=== PATIENT | female | born 1955 | race American Indian/Alaskan Native ===

== ENCOUNTER 2016-08-23 13:42 | Outpatient (CLI) | payer BC ==
--- NOTE | 2016-08-23 15:30 | Mammography Report ---
BILATERAL MAMMOGRAM: FINDINGS: The breasts are almost entirely fat (<25% glandular). No mass, distortion, suspicious calcification, or skin change is seen. There is no significant change compared to her prior exam in October 2014. CAD was utilized. IMPRESSION: Negative mammogram. There is no mammographic evidence of malignancy. RECOMMENDATION: Follow-up per ACS guidelines. BI-RADS CATEGORY: 1 = Negative ACR BI-RADS MAMMOGRAPHIC CODES: 0 = Needs additional imaging evaluation; 1 = Negative; 2 = Benign; 3 = Probably benign; 4 = Suspicious; 5 = Malignant; 6 = Known biopsy-proven malignancy COMMENT: 1. Dense breast tissue, i.e., adenosis, fibrocystic changes, etc., may obscure an underlying neoplasm. 2. Approximately 10% of cancers are not detected with mammography. 3. A negative mammography report should not delay biopsy if a clinically suspicious mass is present. COMMENT: Patient follow-up letters are generated in [employer].
== END 2016-08-23 13:43 | disposition home or self-care (01) ==
LOC: MAMMO 13:42
PROVIDERS: ATTEND Obstetrics & Gynecology
DX: Z12.31 Encounter for screening mammogram for malignant neoplasm of breast (principal)
CPT/HCPCS: 77067; G0202

== ENCOUNTER 2018-01-03 10:00 | Outpatient (CLI) | payer BC ==
--- NOTE | 2018-01-03 13:42 | Mammography Report ---
BILATERAL DIGITAL SCREENING MAMMOGRAM with CAD: 01/03/18 10:00:00 CLINICAL: Routine screening. COMPARISON:08/23/16 FINDINGS: The breasts are almost entirely fatty.A few stable right inner benign calcifications. No mass, architectural distortion or suspicious calcifications. IMPRESSION: No mammographic evidence of malignancy. BI-RADS CATEGORY: 2 -- Benign RECOMMENDATION: Routine mammographic screening in one year. COMMENT: Patient follow-up letters are generated by our [employer] application.
== END 2018-01-03 10:01 | disposition home or self-care (01) ==
LOC: MAMMO 10:00
PROVIDERS: ATTEND Obstetrics & Gynecology
DX: Z12.31 Encounter for screening mammogram for malignant neoplasm of breast (principal)
CPT/HCPCS: 77067

== ENCOUNTER 2019-11-13 07:31 | Outpatient (CLI) | payer MEDICARE ==
--- NOTE | 2019-11-13 09:15 | Mammography Report ---
DIGITAL SCREENING MAMMOGRAM WITH CAD, 11/13/2019 INDICATION: Routine screening mammography. TECHNIQUE: Digital bilateral 2D mammography was obtained in the craniocaudal and mediolateral obliq ue projections. This examination was interpreted with the benefit of Computer-Aided Detection analysi s. COMPARISON: 08/23/2016, 01/03/2018 FINDINGS: Breast Density: The breasts are almost entirely fatty. There is no evidence of dominant mass, suspicious calcifications or architectural distortion in eithe r breast. Benign calcifications are present in the right breast, unchanged. IMPRESSION: No evidence of malignancy. Follow up recommendation: Routine yearly BI-RADS Category 2: Benign. A "normal" or negative report should not discourage follow up or biopsy of a clinically significant f inding. A written summary of these findings will be mailed to the patient. The patient will be entered into a mammography reporting system which will generate a reminder letter for the patient's next appointmen t at the appropriate interval. The [employer] recommends yearly mammograms starting at age 40 and continuing as l ifeoma as a woman is in good health. Breast MRI is recommended for women with an approximate 20-25% or greater lifetime risk of breast cancer, including women with a strong family history of breast or ova corry cancer or who have been treated for Hodgkin's disease. Signer Name: Roberta Beasley MD Signed: 11/13/2019 9:11 AM Workstation Name: [id number]
--- NOTE | 2019-11-13 09:18 | Mammography Report ---
DEXA BONE DENSITY SCAN INDICATION: OSTEOPOROSIS. COMPARISON: None LUMBAR SPINE (L1-L4): Bone mineral density (BMD) is 1.22 g/cm2. T-score is 1.6 (standard deviations of Young Adult mean). Z-score is 2.7 (standard deviations of Age Matched mean). LEFT FEMORAL NECK: Bone mineral density (BMD) is 0.963 g/cm2. T-score is 1.0 (standard deviations of Young Adult mean). Z-score is 1.4 (standard deviations of Age Matched mean). IMPRESSION: 1. WHO Classification: Normal bone density. Fracture Risk: Not Increased. Signer Name: Tang Hale MD Signed: 11/13/2019 9:14 AM Workstation Name: [id number]
== END 2019-11-13 07:32 | disposition home or self-care (01) ==
LOC: MAMMO 07:31
PROVIDERS: ATTEND Obstetrics & Gynecology
DX: Z12.31 Encounter for screening mammogram for malignant neoplasm of breast (principal); Z13.820 Encounter for screening for osteoporosis; M81.0 Age-related osteoporosis without current pathological fracture
CPT/HCPCS: 77067; 77080

== ENCOUNTER 2020-11-15 12:21 | Outpatient (CLI) | payer MEDICARE ==
--- NOTE | 2020-11-15 15:47 | Mammography Report ---
DIGITAL SCREENING MAMMOGRAM WITH CAD, 11/15/2020 CLINICAL INFORMATION / INDICATION: Routine screening mammography. TECHNIQUE: Digital bilateral 2D mammography was obtained in the craniocaudal and mediolateral obliqu e projections. This examination was interpreted with the benefit of Computer-Aided Detection analysis . COMPARISON: 11/13/2019, 01/03/2018 FINDINGS: Breast Density: The breasts are almost entirely fatty. No dominant mass, suspicious calcifications, or architectural distortion in either breast. No interval change. IMPRESSION: No mammographic evidence of malignancy. Follow up recommendation: Routine yearly BI-RADS Category 1: Negative. A "normal" or negative report should not discourage follow up or biopsy of a clinically significant f inding. A written summary of these findings will be mailed to the patient. The patient will be entered into a mammography reporting system which will generate a reminder letter for the patient's next appointmen t at the appropriate interval. The [employer] recommends yearly mammograms starting at age 40 and continuing as l ifeoma as a woman is in good health. Breast MRI is recommended for women with an approximate 20-25% or greater lifetime risk of breast cancer, including women with a strong family history of breast or ova corry cancer or who have been treated for Hodgkin's disease. Signer Name: Roberta Beasley MD Signed: 11/15/2020 3:43 PM Workstation Name: [id number]
== END 2020-11-15 12:22 | disposition home or self-care (01) ==
LOC: MAMMO 12:21
PROVIDERS: ATTEND Obstetrics & Gynecology
DX: Z12.31 Encounter for screening mammogram for malignant neoplasm of breast (principal)
CPT/HCPCS: 77067